=== PATIENT | male | born 1965 | race Caucasian/White ===

== ENCOUNTER 2024-03-06 08:15 | Emergency (ER) | payer BC ==
[2024-03-06] MEDS ORDERED: Proparacaine 0.5% Opth 15 ML BOT ONE (08:53)
[2024-03-06] MEDS ORDERED: diphenhydrAMINE 50 MG/ML VIAL ONE (08:57)
[2024-03-06] MEDS ORDERED: Ketorolac Tromethamine 30 MG (1 mL) VIAL ONE (08:57)
[2024-03-06] MEDS ORDERED: Metoclopramide HCl 10 MG (2 mL) VIAL ONE (08:57)
[2024-03-06 09:11] LABS: #Basophils 0.04 10x3/uL (0.0-0.2); #Eosinphils 0.09 10x3/uL (0.0-0.5); #Monocytes 0.65 10x3/uL (0.0-1.1); #Neutrophils 3.04 10x3/uL (1.5-8.4); %Basophils 0.7 % (0.0-2.0); %Eosinophils 1.5 % (0.0-6.0); %Lymphocytes 36.5 % (18.0-47.0); %Monocytes 10.8 % (0.0-10.0); %Neutrophils 50.3 % (40.0-75.0); Hematocrit 45.8 % (38.8-50.0); Hemoglobin 15.6 g/dL (13.5-17.5); Mean Corpuscular HGB CONC 34.1 g/dL (32.0-36.0); Mean Corpuscular Volume 91.1 fL (81.2-95.1); Mean Platelet Volume 9.9 fL (7.4-10.4); Platelet Count 312 10x3/uL (150-450); RBC Distribution Width 14.5 % (11.5-14.5); Red Blood Cell (RBC) Count 5.03 10x6/uL (4.32-5.72)
[2024-03-06] MEDS ORDERED: Lorazepam 2 MG/ML VIAL ONE (09:20)
[2024-03-06 09:24] LABS: ALT (SGPT) 21 U/L (8-55); AST (SGOT) 18 U/L (5-34); Alkaline Phosphatase 72 U/L (40-110); Anion Gap 15 mmol/L (10-20); BUN (Urea Nitrogen) 11 mg/dL (8.4-25.7); Bilirubin, Total 0.6 mg/dL (0.2-1.2); Calc. Creatinine Clearance 0 mL/min (70-130); Calcium 9.5 mg/dL (7.8-10.44); Carbon Dioxide 20 mmol/L (23-31); Chloride 110 mmol/L (98-107); Estimated GFR 99; Globulin 2.8 g/dL (2.4-3.5); Glucose 93 mg/dL (80-115); Potassium 4.6 mmol/L (3.5-5.1); Protein, Total 6.8 g/dL (5.8-8.1); Sodium 140 mmol/L (136-145)
== END 2024-03-06 10:44 | disposition home or self-care (01) ==
LOC: CSHERS 08:15
DX: R51.9 Headache, unspecified (principal); H53.9 Unspecified visual disturbance; Z55.6 Problems related to health literacy
CPT/HCPCS: 70496; 70498; 80053; 85025; 86140; 96374; 96375; J1200; J1885; J2060; J2765